=== PATIENT | male | born 1945 | race Caucasian/White ===

== ENCOUNTER 2017-03-14 10:03 | Observation (INO) | payer MEDICARE, OTHER ==
[~2017-03-14] VITALS: Ht 177.8 cm; Wt 85.6 kg
[2017-03-14] MEDS: SODIUM CHLORIDE 0.9% 1,000 ML IV SCH ×2 (11:35→19:35)
[2017-03-14 11:43] VITALS: BP 149/92
[2017-03-14] MEDS ORDERED: MV-M1TAB16 PO (11:53)
[2017-03-14] MEDS ORDERED: FOSI20TA PO (11:53)
[2017-03-14] MEDS ORDERED: MULT-208 PO (11:53)
[2017-03-14] MEDS ORDERED: GLUC1TAB27 PO (11:53)
[2017-03-14] MEDS ORDERED: fiber PO (11:53)
[2017-03-14] MEDS ORDERED: ACYC-114 PO (11:53)
[2017-03-14] MEDS ORDERED: ATOR10TA9 PO (11:53)
[2017-03-14] MEDS ORDERED: ALLO100T30 PO (11:53)
[2017-03-14] MEDS ORDERED: PLEASE ENTER ALLERGIES MC SCH ×2 (12:00)
[2017-03-14] MEDS ORDERED: MIDAZOLAM 1 MG/ML, 5ML ONE (12:54)
[2017-03-14] MEDS ORDERED: FENTANYL PF 100 MCG/2ML ONE (12:54)
[2017-03-14] MEDS ORDERED: LIDOCAINE 2%, 20ML ONE (12:54)
[2017-03-14 12:59] LABS: BLOOD UREA NITROGEN 16 mg/dL (7-18)
[2017-03-14] MEDS ORDERED: CEFAZOLIN PMX 1GM/50ML 50 ML IVPB ONE (13:00)
[2017-03-14 13:04] LABS: ASPARTATE AMINO TRANSFERASE 20 U/L (15-37)
[2017-03-14] MEDS ORDERED: VANCOMYCIN 500 MG ONE (13:08)
[2017-03-14] MEDS ORDERED: VANCOMYCIN PMX 1GM/200ML 200 ML ONE (13:08)
[2017-03-14 14:45] VITALS: BP 103/50
[2017-03-14] MEDS ORDERED: ACETAMINOPHEN 500 MG TABLET PO PRN (15:00)
[2017-03-14] MEDS: HYDROcodone/APAP 5/325 TABLET PO PRN ×2 (16:40→20:25)
[2017-03-14 19:25] VITALS: BP 112/72
[2017-03-14] MEDS: VANCOMYCIN PMX 1GM/200ML 200 ML IV SCH (20:29)
[2017-03-14] MEDS ORDERED: ATORVASTATIN 10 MG TABLET PO SCH (21:00)
[2017-03-15] MEDS: HYDROcodone/APAP 5/325 TABLET PO PRN (02:18)
[2017-03-15 03:00] VITALS: BP 116/74
[2017-03-15] MEDS: SODIUM CHLORIDE 0.9% 1,000 ML IV SCH ×2 (03:35→11:32)
[2017-03-15] MEDS: VANCOMYCIN PMX 1GM/200ML 200 ML IV SCH ×2 (04:32→10:00)
[2017-03-15 07:31] VITALS: BP 143/87
[2017-03-15] MEDS ORDERED: CHOLECALCIFEROL 1,000 UNIT TABLET PO SCH (09:00)
[2017-03-15] MEDS ORDERED: ACYCLOVIR 400 MG TABLET PO SCH (09:00)
[2017-03-15] MEDS ORDERED: CALCIUM POLYCARBOPHIL 625 MG TABLET PO SCH (09:00)
[2017-03-15] MEDS ORDERED: ALLOPURINOL 100 MG TABLET PO SCH (09:00)
[2017-03-15] MEDS ORDERED: FOSINOPRIL 20MG TABLET PO SCH (09:00)
[2017-03-15] MEDS ORDERED: MULTIVITAMIN 1 TABLET PO SCH (09:00)
== END 2017-03-15 12:17 | disposition home or self-care (01) ==
LOC: CACL 10:03 → 5SO 14:10 → CACL 23:56 → 5SO 23:57
PROVIDERS: ADMIT Internal Medicine Cardiovascular Disease; ATTEND Internal Medicine Cardiovascular Disease
DX: I44.2 Atrioventricular block, complete (principal); I45.4 Nonspecific intraventricular block; R00.1 Bradycardia, unspecified; I10 Essential (primary) hypertension; M10.9 Gout, unspecified; E78.5 Hyperlipidemia, unspecified
CPT/HCPCS: 33208; 36415; 71010; 71020; 80053; 85025; 85610; 96365; 96366; 99156; 99157; C1779; C1785; C1892; G0378; J2250; J3010; J3370; J3490

== ENCOUNTER → 2017-05-09 | Outpatient (CLI) | payer MEDICARE, OTHER ==
[~2017-05-09] MED LIST: ACYC-114 PO; ALLO100T30 PO; ATOR10TA9 PO; FOSI20TA PO; GLUC1TAB27 PO; MULT-208 PO; MV-M1TAB16 PO; REGADENOSON 0.4 MG/5 ML SYRINGE ONE; fiber PO
== END | disposition home or self-care (01) ==
LOC: CFH 06:43
PROVIDERS: ATTEND Internal Medicine Cardiovascular Disease
DX: I08.3 Combined rheumatic disorders of mitral, aortic and tricuspid valves (principal); E78.5 Hyperlipidemia, unspecified; I10 Essential (primary) hypertension; Z95.0 Presence of cardiac pacemaker
CPT/HCPCS: 78452; 93017; 93306; A9502; J2785

== ENCOUNTER 2019-04-08 07:35 | Outpatient (CLI) | payer MEDICARE, OTHER ==
[~2019-04-08 07:35] MED LIST changes: -FOSI20TA PO; +FOSI20TA7 PO; -REGADENOSON 0.4 MG/5 ML SYRINGE ONE
[2019-04-08] MEDS ORDERED: REGADENOSON 0.4 MG/5 ML SYRINGE ONE (10:33)
== END 2019-04-08 23:59 | disposition home or self-care (01) ==
LOC: CFH 07:35
PROVIDERS: ATTEND Internal Medicine Cardiovascular Disease
DX: I47.1 Supraventricular tachycardia (principal); I10 Essential (primary) hypertension
CPT/HCPCS: 78452; 93017; A9502; J2785

== ENCOUNTER 2019-07-13 08:11 | Outpatient (CLI) | payer MEDICARE, OTHER | END 2019-07-13 23:59 | disposition home or self-care (01) | LOC: CFH 08:11 | PROVIDERS: ATTEND Internal Medicine Cardiovascular Disease | DX: I08.8 Other rheumatic multiple valve diseases (principal); I10 Essential (primary) hypertension | CPT/HCPCS: 93306 ==